=== PATIENT | female | born 2000 | race African-American/Black ===

== ENCOUNTER 2024-05-05 14:58 | Emergency (ER) | payer MEDICAID ==
[~2024-05-05] VITALS: Ht 170.2 cm; Wt 107.0 kg
[2024-05-05 15:05] VITALS: BP 118/75; PULSE 98; RESP 16; TEMP 98.7; O2SAT 99
== END 2024-05-05 17:55 | disposition left against medical advice (07) ==
LOC: ER 14:58
DX: M25.551 Pain in right hip (principal); Z53.21 Procedure and treatment not carried out due to patient leaving prior to being seen by health care provider; V49.9XXA Car occupant (driver) (passenger) injured in unspecified traffic accident, initial encounter; Y93.89 Activity, other specified; Y92.89 Other specified places as the place of occurrence of the external cause; Y99.8 Other external cause status